=== PATIENT | male | born 1975 | race Caucasian/White ===

== ENCOUNTER 2024-06-13 00:42 | Outpatient (CLI) | payer OTHER, SELFPAY ==
--- NOTE | 2024-06-13 | DI.MRI_ITS ---
Exam(s) MR BRAIN WO EXAM: MR BRAIN WO CLINICAL HISTORY: Altered mental status, R41.82; increasing tremor; confusion, forgetfulness TECHNIQUE: Multiplanar multisequence MRI of the brain was performed. COMPARISON: CR SKULL 4V from 05/26/2024 FINDINGS: VENTRICLES AND EXTRA AXIAL SPACES: Normal in size and morphology for the patient's age. MIDLINE SHIFT: None. CEREBRAL PARENCHYMA: No focus of restricted diffusion to suggest acute infarct. No space-occupying le chacho identified. HEMORRHAGE: None. BRAINSTEM/CEREBELLUM: Normal. CALVARIUM: Normal. VISUALIZED PARANASAL SINUSES/MASTOIDS:There is a small mucous retention cyst or polyp in the right ma xillary sinus. The remaining visualized paranasal sinuses are clear. [place]: Normal flow void. PITUITARY GLAND: Unremarkable. OTHER FINDINGS: None. IMPRESSION: Unremarkable MRI of the brain. DATA REPOSITORY:
== END 2024-06-13 01:02 ==
PROVIDERS: Visit Provider Nurse Practitioner Family
DX: R41.82 Altered mental status, unspecified (principal)
CPT/HCPCS: 70551

== ENCOUNTER 2024-10-14 12:05 | Outpatient (CLI) | payer MEDICAID, SELFPAY ==
[2024-10-14 11:44] LABS: Abs Immature Grans 0.02 10^3/uL (0.0-0.06); Absolute Basophil Count 0.05 10^3/uL (0.0-0.2); Absolute Eosinophil Count 0.09 10^3/uL (0.0-0.7); Absolute Lymphocyte Count 1.37 10^3/uL (1.2-3.4); Absolute Monocyte Count 0.39 10^3/uL (0.1-0.8); Absolute Neutrophil Count 4.45 10^3/uL (1.2-6.7); Basophils % 0.8 %; Eosinophils % 1.4 %; HCT 40.2 % (40.0-50.0); HGB 12.7 g/dL (13.5-17.5); Immature Grans % 0.3 %; Lymphocytes % 21.5 %; MCH 27.5 pg (27.0-33.0); MCHC 31.6 % (32.0-36.0); MCV 87 fL (80-95); Monocytes % 6.1 %; Neutrophils % 69.9 %; Platelet Count 167 10^3/uL (130-400); RBC 4.61 10^6/uL (4.36-5.78); RDW 13.8 % (11.8-14.1); RDW-SD 44.1 fL; WBC 6.37 10^3/uL (4.4-10.8)
[2024-10-14 11:53] LABS: Hemoglobin A1C 5.6 % (<5.7)
[2024-10-14 13:09] LABS: ALT 25 U/L (16-63); AST 22 U/L (15-37); Albumin 3.5 g/dL (3.4-5.0); Alkaline Phosphatase 56 U/L (46-116); Anion Gap 4.2 mmol/L (3-11); BUN 22 mg/dL (7-18); Bilirubin, Total 0.47 mg/dL (0.2-1.0); CO2 29.8 mmol/L (21.0-32.0); CREATININE 1.1 mg/dL (0.70-1.30); Calcium 8.8 mg/dL (8.5-10.1); Calculated LDL 107 mg/dL (<100); Chloride 106 mmol/L (98-107); Cholesterol 178 mg/dL (<200); Estimated GFR 81.78 (mL/min/1.73m2); Glucose 147 mg/dL (74-106); HDL Cholesterol 56 mg/dL (40-60); Sodium 140 mmol/L (136-145); TSH (W/Ref FT4) 0.91 uIU/mL (0.36-3.74); Total Protein 7.2 g/dL (6.4-8.2); Triglyceride 77 mg/dL (<150); Vitamin B12 324 pg/mL (193-986); Vitamin D 25 Total 14.1 ng/mL (30-100)
== END 2024-10-14 12:06 | disposition home or self-care (01) ==
LOC: LBO 12:06
PROVIDERS: Visit Provider Nurse Practitioner Family
DX: Z00.00 Encounter for general adult medical examination without abnormal findings (principal); E55.9 Vitamin D deficiency, unspecified; D51.3 Other dietary vitamin B12 deficiency anemia; I10 Essential (primary) hypertension
CPT/HCPCS: 36415; 80053; 80061; 82306; 82607; 83036; 84443; 85025

== ENCOUNTER 2024-11-20 08:38 | Outpatient (CLI) | payer MEDICAID, SELFPAY ==
--- NOTE | 2024-11-20 08:30 | RT.EKG_ITS ---
APPROVED REPORT Exam: Resting ECG Reason for Exam: HIGH RISK MEDICATION USE Patient Location: O HR:58 bpm ECG Measurements Heart Rate 58 AXIS WV 164 P -3 QRSd 99 QRS 46 QT 468 T 58 QTc 460 Conclusion Sinus rhythm...normal P axis, V-rate 50- 99 Normal Electrocardiogram
== END 2024-11-20 08:39 | disposition home or self-care (01) ==
PROVIDERS: Visit Provider Family Medicine
DX: Z79.899 Other long term (current) drug therapy (principal)
CPT/HCPCS: 93005; 93010

== ENCOUNTER 2024-12-28 13:00 | Emergency (ER) | payer MEDICAID, SELFPAY ==
[2024-12-28 13:21] VITALS: BP 149/73; PULSE 73; RESP 18; TEMP 36.7; O2SAT 96
[2024-12-28 13:27] VITALS: BP 149/73; PULSE 73; RESP 18; TEMP 36.7; O2SAT 96
--- NOTE | 2024-12-28 14:02 | ED.GENADUL_ITS ---
Discharge Plan Disposition Patient Disposition: Home Condition: Stable Discharge Details Clinical Impression: Cellulitis Primary Care Provider: Unknown,Unknown ED Provider: Tanika Soliz Home Meds and New Rx's Prescriptions: New doxycycline hyclate 100 mg capsule 100 mg PO BID 10 Days Qty: 20 0RF No Action methadone 10 mg/5 mL solution 245 mg PO DAILY clonidine HCl 0.1 mg tablet 0.1 mg PO BID PRN (Reason: anxiety) Patient Comments: TAKE 1 TABLET BY MOUTH TWICE DAILY NEEDED FOR ANXIETY omeprazole 40 mg capsule,delayed release(DR/EC) 40 mg PO DAILY Patient Comments: TAKE 1 CAPSULE BY MOUTH EVERY DAY lamotrigine 25 mg tablet 25 mg PO DAILY propranolol 10 mg tablet 10 mg PO TID Patient Comments: TAKE 1 TABLET BY MOUTH THREE TIMES DAILY tamsulosin 0.4 mg capsule 0.4 mg PO DAILY Patient Comments: TAKE 1 CAPSULE BY MOUTH DAILY amlodipine 10 mg tablet 10 mg PO DAILY Patient Comments: TAKE 1 TABLET BY MOUTH EVERY DAY gabapentin 300 mg capsule 300 mg PO TID Patient Comments: TAKE 1 CAPSULE BY MOUTH THREE TIMES DAILY hydroxyzine HCl 25 mg tablet 25 mg PO BID Patient Comments: TAKE 1 TABLET BY MOUTH TWICE DAILY NEEDED FOR ANXIETY AND 2 TABLETS AT BEDTIME TO AID SLEEP lithium carbonate 300 mg tablet 300 mg PO BID Patient Comments: TAKE 1 TABLET BY MOUTH TWICE DAILY lamotrigine 100 mg tablet 100 mg PO DAILY Patient Comments: TAKE 1 TABLET BY MOUTH DAILY Discharge Instructions Instructions: Cellulitis (Skin Infection), Adult ED Additional Instructions: Please keep your wound clean and dry. Use non-stick dressing over the wound to prevent your skin avulsion. Observe for any worsening redness, swelling, fever, calf pain, etc. If this happens, please return to the Emergency Department. HPI General Date/Time Provider Initiated Documentation: 12/28/24 13:48 . HPI Narrative: The patient is a 49-year-old male with history of hypertension who comes the emergency department for concern for skin infection. The patient reports that he is prone to falling and so a week ago as he was going up the stairs he slipped and hit his shins against the step. Reports he developed a large red spot on his left murry and on the right murry he had significant bruising. He reports that there was a skin break to the left murry which he and his have been dressing and applying [id number] antibiotic. Reports that he had a dressing on it earlier this morning and when he removed the dressing it ripped up the scab that was over it. Reports that he is also concerned about rash on his knuckles. Reports that he relapsed and had injected cocaine in the knuckle spaces of his hands. Reports that he also has a scab formation on the back of his right calf also from injecting cocaine. Reports this is the first time he has had rashes from injection. Reports otherwise that he feels at baseline health. Denies any fever with this. Denies abdominal pain, nausea or vomiting. Denies any chest pain or shortness of breath. Related Data Home Medications ?Medication ?Instructions ?Recorded ?Confirmed amlodipine 10 mg tablet 10 mg PO DAILY 12/28/24 12/28/24 clonidine HCl 0.1 mg tablet 0.1 mg PO BID PRN anxiety 12/28/24 12/28/24 doxycycline hyclate 100 mg capsule 100 mg PO BID 10 days #20 caps 12/28/24 gabapentin 300 mg capsule 300 mg PO TID 12/28/24 12/28/24 hydroxyzine HCl 25 mg tablet 25 mg PO BID 12/28/24 12/28/24 lamotrigine 100 mg tablet 100 mg PO DAILY 12/28/24 12/28/24 lamotrigine 25 mg tablet 25 mg PO DAILY 12/28/24 12/28/24 lithium carbonate 300 mg tablet 300 mg PO BID 12/28/24 12/28/24 methadone 10 mg/5 mL oral solution 245 mg PO DAILY 12/28/24 12/28/24 omeprazole 40 mg capsule,delayed 40 mg PO DAILY 12/28/24 12/28/24 release propranolol 10 mg tablet 10 mg PO TID 12/28/24 12/28/24 tamsulosin 0.4 mg capsule 0.4 mg PO DAILY 12/28/24 12/28/24 Previous Rx's ?Medication ?Instructions ?Recorded doxycycline hyclate 100 mg capsule 100 mg PO BID 10 days #20 caps 12/28/24 Allergies Allergy/AdvReac Type Severity Reaction Status Date / Time No Known Allergies Allergy Unverified 12/28/24 13:24 General Stated Complaint: Cellulitis HANNAH: 3 Review of Systems Narrative: Review of systems are negative except as mentioned. Exam Const General: healthy appearing, comfortable and no acute distress Orientation: alert, awake and oriented x3 Resp Effort & Inspection: normal respiratory effort Auscultation: clear to auscultation bilaterally Cardio Rate: regular rate Rhythm: regular rhythm Pulses: radial pulses present Other: The patient has equal dorsalis pedis pulses. GI Palpation: soft Auscultation: normal bowel sounds Rectal Exam: No tenderness Skin Full body images: 2 1. There is a skin break and surrounding erythema with increased warmth to the touch. No palpable induration is noted. 2. Scab formation is noted here without surrounding erythema or increased warmth to touch. 3. Area of erythema with increased warmth to touch without palpable induration. 4. Area of erythema with increased warmth to touch without palpable induration. Extrem Other: The patient does have left lower extremity swelling along the erythematous site without calf tenderness on palpation. Course Vital Signs Vital signs: Vital Signs Temperature 36.7 C 12/28/24 13:21 Pulse 73 12/28/24 13:21 Respiratory Rate 18 12/28/24 13:21 Blood Pressure 149/73 H 12/28/24 13:21 Pulse Oximetry 96 12/28/24 13:21 Temperature 36.7 C 12/28/24 13:27 Pulse 73 12/28/24 13:27 Respiratory Rate 18 12/28/24 13:27 Blood Pressure 149/73 H 12/28/24 13:27 Pulse Oximetry 96 12/28/24 13:27 Medical Decision Making The patient arrives hemodynamically stable. His physical exam is concerning for cellulitis. In particular to the left murry I told the patient and his that it does not yet need incision and drainage. I encouraged them to continue conservative wound management at home but that he will get a dose of p.o. antibiotic now and a prescription sent to his preferred pharmacy for the next few days. I told him to observe for any worsening signs of infection and if this happens return to the emergency department immediately. The patient does have swelling to the left lower extremity without calf tenderness. I suspect that the swelling secondary to the infection versus DVT. I told the patient and his though that if the leg starts to become painful or if the swelling worsens then he may need to return for an ultrasound study looking for blood clots. In regards to the knuckles of both hands I told him to also do conservative wound management and strongly cautioned him from injecting cocaine in his skin once more. Quality:SDOH Health Related Social Needs: 2 No Data to Display PFSH All Active Problems (Updated 12/28/24 @ 14:03 by Tanika Soliz DO) Cellulitis (Acute) Social History Smoking/Tobacco Use Status: Current every day Tobacco Type: smokeless tobacco Smoking risk assessment performed?: Yes Alcohol Intake: never Drug use: Daily Substance use type: crack/cocaine Do you feel safe at home: Yes Do you feel safe in your relationship?: Yes
[2024-12-28] MEDS: Doxycycline Hyclate 100 MG CAP PO (14:06)
[2024-12-28 14:09] VITALS: BP 149/73; PULSE 73; RESP 18; TEMP 36.7; O2SAT 96
== END 2024-12-28 14:10 | disposition home or self-care (01) ==
LOC: ER 14:17
PROVIDERS: Emergency Provider Emergency Medicine
DX: L03.116 Cellulitis of left lower limb; F14.10 Cocaine abuse, uncomplicated; L53.9 Erythematous condition, unspecified; F17.290 Nicotine dependence, other tobacco product, uncomplicated
CPT/HCPCS: 99283

== ENCOUNTER 2025-01-08 01:06 | Outpatient (CLI) | payer OTHER, SELFPAY ==
--- NOTE | 2025-01-08 10:42 | DI.RAD_ITS ---
Exam(s) XR LUMBAR SPINE AP, LAT EXAM: XR LUMBAR SPINE AP, LAT CLINICAL HISTORY: LOW BACK PAIN, DISABILITY DETERMINATION, Z02.71. TECHNIQUE: 2D digital imaging was performed of the lumbar spine. Three images were obtained. AP, l ateral and L5-S1 spot views were obtained. COMPARISON: No exams were available for comparison FINDINGS: BONES: No fracture or destructive lesion. There are endplate osteophytes at several levels of the lum bar spine. No facet hypertrophy identified. DISKS: Intervertebral disc spaces are maintained. ALIGNMENT: Lumbar spinal alignment is within normal limits. No spondylolysis or spondylolisthesis. SOFT TISSUE: Atherosclerotic calcification is seen. IMPRESSION: Mild degenerative changes in the lumbar spine. DATA REPOSITORY: RADIATION DOSE DELIVERED:
--- NOTE | 2025-01-08 10:43 | DI.RAD_ITS ---
Exam(s) XR KNEE RT 3V AP,LAT,[place] EXAM: XR KNEE RT 3V AP,LAT,[place] CLINICAL HISTORY: RT KNEE PAIN, Z02.71, DISABILITY DETERMINATION. TECHNIQUE: 2D digital imaging was performed of the right knee. Three views obtained. AP, lateral an d PA tunnel views were obtained. COMPARISON: There are no priors for comparison. FINDINGS: BONES: No acute fracture is present. No bony destructive lesion is seen. JOINTS: The knee is normally aligned. No joint effusion is seen. SOFT TISSUE: Normal. IMPRESSION: Unremarkable radiographs of the right knee. DATA REPOSITORY: RADIATION DOSE DELIVERED:
== END 2025-01-08 01:26 ==
PROVIDERS: PCP Nurse Practitioner Family; Visit Provider Pediatrics Pediatric Rheumatology
DX: Z02.71 Encounter for disability determination (principal); M54.50 Low back pain, unspecified
CPT/HCPCS: 73562; 72100

== ENCOUNTER 2025-02-01 12:03 | Inpatient (IN) | payer MEDICAID, SELFPAY ==
[2025-02-01] VITALS (35 sets, daily range): BP systolic 119–174; BP diastolic 57–108; PULSE 59–81; RESP 11–30; TEMP 36.5–36.8; O2SAT 93–100
--- NOTE | 2025-02-01 12:30 | DI.RAD_ITS ---
Exam(s) XR TIB/FIB LT EXAM: XR TIB/FIB LT CLINICAL HISTORY: cellulitis. TECHNIQUE: 2D digital imaging was performed of the left tibia and fibula. Three images were obtained . AP and lateral views were obtained. COMPARISON: No exams were available for comparison FINDINGS: BONES: No acute fracture is present. No bony destructive lesion is seen. Visualized portion of knee a nd ankle joints are unremarkable. SOFT TISSUE: There is edema seen in the soft tissues of the lower extremity. There appears to be a s oft tissue defect at the anterior aspect of the lower leg on the lateral view which may represent an ulcer. Please correlate with the patient's physical exam. IMPRESSION: 1. No radiographic evidence to suggest acute osteomyelitis. 2. Edema in the lower extremity suggesting cellulitis. Question of a skin defect anteriorly in the l ower leg on the lateral view which may represent an ulcer. Please correlate with the patient's physi salas exam. DATA REPOSITORY: RADIATION DOSE DELIVERED:
[2025-02-01 13:03] LABS: Abs Immature Grans 0.02 10^3/uL (0.0-0.06); Absolute Basophil Count 0.05 10^3/uL (0.0-0.2); Absolute Monocyte Count 0.53 10^3/uL (0.1-0.8); Absolute Neutrophil Count 7.34 10^3/uL (1.2-6.7); Basophils % 0.5 %; Eosinophils % 1.1 %; HCT 39.5 % (40.0-50.0); HGB 12.5 g/dL (13.5-17.5); Immature Grans % 0.2 %; Lactate 0.8 mmol/L (<or=2.0); Lymphocytes % 14.8 %; MCH 27.1 pg (27.0-33.0); MCHC 31.6 % (32.0-36.0); MCV 86 fL (80-95); MPV 8.9 fL (8.0-11.0); Monocytes % 5.6 %; Neutrophils % 77.8 %; Platelet Count 239 10^3/uL (130-400); RBC 4.61 10^6/uL (4.36-5.78); RDW-SD 46.9 fL; WBC 9.44 10^3/uL (4.4-10.8)
[2025-02-01 13:06] LABS: ESR 51 mm/hr (0-15)
[2025-02-01 13:21] LABS: ALT 25 U/L (16-63); AST 29 U/L (15-37); Albumin 3.4 g/dL (3.4-5.0); Alkaline Phosphatase 55 U/L (46-116); Anion Gap 4.9 mmol/L (3-11); BUN 30 mg/dL (7-18); Bilirubin, Total 0.8 mg/dL (0.2-1.0); C-Reactive Protein 3.61 mg/dL (<or=0.5); CO2 30.1 mmol/L (21.0-32.0); CREATININE 1.1 mg/dL (0.70-1.30); Calcium 9.3 mg/dL (8.5-10.1); Chloride 103 mmol/L (98-107); Estimated GFR 81.78 (mL/min/1.73m2); Glucose 124 mg/dL (74-106); Potassium 4.1 mmol/L (3.5-5.1); Sodium 138 mmol/L (136-145); Total Protein 7.9 g/dL (6.4-8.2)
[2025-02-01] MEDS: VANCOMYCIN/WATER (PEG) 2 GM/400 ML BAG IVPB (13:30)
--- NOTE | 2025-02-01 14:10 | W.ED.GENAD ---
Discharge Plan Disposition Patient Disposition: Admit to [facility] Condition: Stable Discharge Details Clinical Impression: Cellulitis, Cocaine abuse, Methadone dependence Primary Care Provider: Enid Arshad ED Provider: Shey Clarke Home Meds and New Rx's Prescriptions: Continued methadone 10 mg/5 mL solution 245 mg PO DAILY clonidine HCl 0.1 mg tablet 0.1 mg PO BID PRN (Reason: anxiety) Patient Comments: TAKE 1 TABLET BY MOUTH TWICE DAILY NEEDED FOR ANXIETY omeprazole 40 mg capsule,delayed release(DR/EC) 40 mg PO DAILY Patient Comments: TAKE 1 CAPSULE BY MOUTH EVERY DAY lamotrigine 25 mg tablet 25 mg PO DAILY propranolol 10 mg tablet 10 mg PO TID Patient Comments: TAKE 1 TABLET BY MOUTH THREE TIMES DAILY tamsulosin 0.4 mg capsule 0.4 mg PO DAILY Patient Comments: TAKE 1 CAPSULE BY MOUTH DAILY amlodipine 10 mg tablet 10 mg PO DAILY Patient Comments: TAKE 1 TABLET BY MOUTH EVERY DAY gabapentin 300 mg capsule 300 mg PO TID Patient Comments: TAKE 1 CAPSULE BY MOUTH THREE TIMES DAILY hydroxyzine HCl 25 mg tablet 25 mg PO BID Patient Comments: TAKE 1 TABLET BY MOUTH TWICE DAILY NEEDED FOR ANXIETY AND 2 TABLETS AT BEDTIME TO AID SLEEP lithium carbonate 300 mg tablet 300 mg PO BID Patient Comments: TAKE 1 TABLET BY MOUTH TWICE DAILY lamotrigine 100 mg tablet 100 mg PO DAILY Patient Comments: TAKE 1 TABLET BY MOUTH DAILY HPI General Date/Time Provider Initiated Documentation: 02/01/25 12:04. HPI Narrative: 49-year-old male with crack cocaine use and recurrent cellulitis, presenting with lab studies and dental follow-up. History of recurrent cellulitis in the left lower extremity. Previously on doxycycline following a fall in December 2024. A week ago, he fell again, injuring the same side, developing worsening redness in the left lower extremity. Reports purulent drainage from the wound, no additional antibiotics. Admits chills, denies fever. Continues to inject crack cocaine but not into the left leg for 3 months. Takes methadone daily. History of hypertension and mood disorder. Related Data Home Medications ?Medication ?Instructions ?Recorded ?Confirmed amlodipine 10 mg tablet 10 mg PO DAILY 12/28/24 02/01/25 clonidine HCl 0.1 mg tablet 0.1 mg PO BID PRN anxiety 12/28/24 02/01/25 gabapentin 300 mg capsule 300 mg PO TID 12/28/24 02/01/25 hydroxyzine HCl 25 mg tablet 25 mg PO BID 12/28/24 02/01/25 lamotrigine 100 mg tablet 100 mg PO DAILY 12/28/24 02/01/25 lamotrigine 25 mg tablet 25 mg PO DAILY 12/28/24 02/01/25 lithium carbonate 300 mg tablet 300 mg PO BID 12/28/24 02/01/25 methadone 10 mg/5 mL oral solution 245 mg PO DAILY 12/28/24 02/01/25 omeprazole 40 mg capsule,delayed 40 mg PO DAILY 12/28/24 02/01/25 release propranolol 10 mg tablet 10 mg PO TID 12/28/24 02/01/25 tamsulosin 0.4 mg capsule 0.4 mg PO DAILY 12/28/24 02/01/25 Allergies Allergy/AdvReac Type Severity Reaction Status Date / Time No Known Allergies Allergy Unverified 02/01/25 12:15 General Stated Complaint: Cellulitis HANNAH: 3 Exam Narrative Exam Narrative: General Appearance: Alert and oriented, not in acute distress. Vital signs: Within normal limits. HEENT: Within normal limits. Respiratory: Within normal limits. Gastrointestinal: No abdominal tenderness. Lymphatic: No lymphangitis. Extremities: Circumferential cellulitis with ulceration on the left lower leg. Multiple pustules present, neurovascularly intact. Erythema and swelling noted. Skin: No crepitus. Neurological: Normal. Course Vital Signs Vital signs: Vital Signs Pulse 81 02/01/25 12:11 Respiratory Rate 30 H 02/01/25 12:11 Pulse Oximetry 95 02/01/25 12:11 Temperature 36.8 C 02/01/25 12:23 Temperature Source Oral 02/01/25 12:23 Pulse 78 02/01/25 12:23 Pulse 74 02/01/25 12:20 Respiratory Rate 16 02/01/25 12:23 Blood Pressure 152/69 H 02/01/25 12:17 Blood Pressure Mean 95 02/01/25 12:17 Blood Pressure Position Sitting 02/01/25 12:16 Pulse Oximetry 97 02/01/25 12:23 Oxygen Delivery Method Room Air 02/01/25 12:23 Oxygen Flow Rate 0 02/01/25 12:16 Pain Level 7 02/01/25 12:23 Lab/Test Results Lab/Test Results: 02/01/25 12:30 Leg - Left Lower Wound Culture - Pending 02/01/25 12:30 Leg - Left Lower Gram Stain - Final 02/01/25 12:50 Blood Blood Culture - Pending 02/01/25 12:50 Blood Blood Culture - Pending Laboratory Tests Range/Units 02/01/25 12:50 WBC (4.4-10.8) 10^3/uL 9.44 RBC (4.36-5.78) 10^6/uL 4.61 Hgb (13.5-17.5) g/dL 12.5 L Hct (40.0-50.0) % 39.5 L MCV (80-95) fL 86 MCH (27.0-33.0) pg 27.1 MCHC (32.0-36.0) % 31.6 L RDW (11.8-14.1) % 15.0 H Plt Count (130-400) 10^3/uL 239 MPV (8.0-11.0) fL 8.9 Immature Gran % % 0.2 Neutrophils % % 77.8 Lymphocytes % % 14.8 Monocytes % % 5.6 Eosinophils % % 1.1 Basophils % % 0.5 Nucleated RBC % (0.0-0.3) % 0.0 Absolute Neutrophils (1.2-6.7) 10^3/uL 7.34 H Absolute Lymphocytes (1.2-3.4) 10^3/uL 1.40 Absolute Monocytes (0.1-0.8) 10^3/uL 0.53 Absolute Eosinophils (0.0-0.7) 10^3/uL 0.10 Absolute Basophils (0.0-0.2) 10^3/uL 0.05 ESR (0-15) mm/hr 51 H VBG Lactate (<or=2.0) mmol/L 0.8 Sodium (136-145) mmol/L 138 Potassium (3.5-5.1) mmol/L 4.1 Chloride (98-107) mmol/L 103 Carbon Dioxide (21.0-32.0) mmol/L 30.1 Anion Gap (3-11) mmol/L 4.9 BUN (7-18) mg/dL 30 H Creatinine (0.70-1.30) mg/dL 1.1 Est GFR (CKD-EPI 2020) (mL/min/1.73m2) 81.78 Glucose (74-106) mg/dL 124 H Calcium (8.5-10.1) mg/dL 9.3 Total Bilirubin (0.2-1.0) mg/dL 0.8 AST (15-37) U/L 29 ALT (16-63) U/L 25 Alkaline Phosphatase (46-116) U/L 55 C-Reactive Protein (<or=0.5) mg/dL 3.61 H Total Protein (6.4-8.2) g/dL 7.9 Albumin (3.4-5.0) g/dL 3.4 Medical Decision Making Laboratory Studies CBC: no leukocytosis, mild anemia. Elevated BUN, likely mild dehydration. CRP elevated at 3.61. Imaging X-ray: no evidence of gas and tissue. Initial Assessment: 49-year-old male with history of crack cocaine use and recurrent cellulitis presents with worsening redness and purulent drainage to left lower extremity after a fall a week ago. Denies fever, endorses chills. History of hypertension, mood disorder, and methadone use. ED Course: - Circumferential cellulitis with ulceration on left lower leg, multiple pustules, neurovascularly intact. - Erythema and swelling noted, no abdominal tenderness, no obvious lymphangitis, no crepitus appreciated. - CBC reassuring, no leukocytosis, mild anemia. - BUN elevated, likely mild dehydration. - CRP elevated at 3.61. - X-ray does not show evidence of obvious gas and tissue. - IV antibiotics initiated, vancomycin started. - Case discussed with Dr. Keith, hospitalist, who will admit patient to service. Final Assessment: Extensive cellulitis requiring IV antibiotics, vancomycin initiated. No evidence of sepsis. Admission required for further management. Clinical Impression: - Cellulitis of the left lower extremity. - Crack cocaine use. - Hypertension. Disposition: - Admission: Patient to be admitted to hospitalist service. - Follow-Up: Methadone dosing to be confirmed with [facility] clinic. MDM Components Evaluation: - Number of Differential Diagnoses or Management Options: Cellulitis, crack cocaine use, hypertension. - Amount and Complexity of Data Reviewed: CBC, BUN, CRP, X-ray. - Risk of Complication and Morbidity or Mortality: Extensive cellulitis with risk of worsening infection, mild dehydration, ongoing substance use. Quality:[facility] Health Related Social Needs: Health related social needs inadequate housing (Z59.1), transportation insecurity (Z59.82) [facility] All Active Problems (Updated 02/01/25 @ 14:13 by RADHA Rodríguez) Methadone dependence (Acute) Cocaine abuse (Acute) Cellulitis (Acute) Social History Smoking/Tobacco Use Status: Current every day Tobacco Type: cigarettes and smokeless tobacco Smoking risk assessment performed?: Yes Alcohol Intake: never Drug use: Daily Substance use type: crack/cocaine Details: last use yesterday Do you feel safe at home: Yes Do you feel safe in your relationship?: Yes
[2025-02-01 14:11] LABS: Lithium < 0.2 mmol/L (0.6-1.2)
--- NOTE | 2025-02-01 15:48 | W.PC.ACHO ---
Registration Status: Primary Language: Preferred Language: ED Information & Data Chief Complaint Cellulitis 02/01/25 14:12 Triage Note pt with recent cellulitis to 02/01/25 12:16 left murry, was healing well then fell again and broke it open a few days ago, pain returned, increase in swelling/redness/drainage, pain increasing, no fever but feels hot/cold, transportation instability, on Methadone and mult psych meds, last injected Cocaine yesterday, nervous/anxious, HTN. Most Recent Vital Signs Temperature 36.8 C 02/01/25 12:23 Temperature Source Oral 02/01/25 12:23 Pulse 60 02/01/25 15:40 Pulse 61 02/01/25 15:40 Respiratory Rate 15 02/01/25 15:40 Blood Pressure 132/66 02/01/25 15:31 Blood Pressure Mean 86 02/01/25 15:31 Blood Pressure Position Sitting 02/01/25 12:16 Pulse Oximetry 94 02/01/25 15:40 Oxygen Delivery Method Room Air 02/01/25 12:23 Oxygen Flow Rate 0 02/01/25 12:16 Pain Level 7 02/01/25 12:23 Allergies No Known Allergies Allergy (Unverified 02/01/25 12:15) Precautions Isolation Standard precaution 02/01/25 12:18 IV IV Catheter Type [Left Forearm Peripheral IV ] IV Catheter Gauge [Left 18 Forearm] Diet Orders Category Date Time Status Regular/Normal [DIET] Nutrition 02/01/25 Dinner Active Diagnostics 02/01/25 02/01/25 Range/Units 13:35 12:50 WBC 9.44 (4.4-10.8) 10^3/uL RBC 4.61 (4.36-5.78) 10^6/uL Hgb 12.5 L (13.5-17.5) g/dL Hct 39.5 L (40.0-50.0) % MCV 86 (80-95) fL MCH 27.1 (27.0-33.0) pg MCHC 31.6 L (32.0-36.0) % RDW 15.0 H (11.8-14.1) % Plt Count 239 (130-400) 10^3/uL MPV 8.9 (8.0-11.0) fL Immature Gran % 0.2 % Neutrophils % 77.8 % Lymphocytes % 14.8 % Monocytes % 5.6 % Eosinophils % 1.1 % Basophils % 0.5 % Nucleated RBC % 0.0 (0.0-0.3) % Absolute Neutrophils 7.34 H (1.2-6.7) 10^3/uL Absolute Lymphocytes 1.40 (1.2-3.4) 10^3/uL Absolute Monocytes 0.53 (0.1-0.8) 10^3/uL Absolute Eosinophils 0.10 (0.0-0.7) 10^3/uL Absolute Basophils 0.05 (0.0-0.2) 10^3/uL ESR 51 H (0-15) mm/hr VBG Lactate 0.8 (<or=2.0) mmol/L Sodium 138 (136-145) mmol/L Potassium 4.1 (3.5-5.1) mmol/L Chloride 103 (98-107) mmol/L Carbon Dioxide 30.1 (21.0-32.0) mmol/L Anion Gap 4.9 (3-11) mmol/L BUN 30 H (7-18) mg/dL Creatinine 1.1 (0.70-1.30) mg/dL Est GFR (CKD-EPI 2020) 81.78 (mL/min/1.73m2) Glucose 124 H (74-106) mg/dL Calcium 9.3 (8.5-10.1) mg/dL Total Bilirubin 0.8 (0.2-1.0) mg/dL AST 29 (15-37) U/L ALT 25 (16-63) U/L Alkaline Phosphatase 55 (46-116) U/L C-Reactive Protein 3.61 H (<or=0.5) mg/dL Total Protein 7.9 (6.4-8.2) g/dL Albumin 3.4 (3.4-5.0) g/dL [place] < 0.2 L (0.6-1.2) mmol/L 02/01/25 12:30 Wound Culture - Pending Leg - Left Lower Gram Stain - Final 02/01/25 12:50 Blood Culture - Pending Blood 02/01/25 12:50 Blood Culture - Pending Blood Intake and Output - 24 Hour Total 02/01/25 12:03 thru 02/01/25 12:16 Weight 108.862 kg Falls Risk Assessment History of Falls Previous History 02/01/25 12:24 Contributing Factors Impairments,Medications 02/01/25 12:24 Ambulatory Aids Independent 02/01/25 12:24 Tubes/Lines None 02/01/25 12:24 Gait Evaluation W/no contributing factors 02/01/25 12:24 Cognition No cognitive impairment 02/01/25 12:24 Fall Total Score 31 02/01/25 12:24 Level of Risk Moderate Risk 02/01/25 12:24 v v v v v v v v v Sending and/or Receiving Nurses: Please use comment section below to note any information pertinent to the patient hand-off not included above. Information / Comments: Report received from:Nidhi Navarro, M[employer]. All questions answered.
--- NOTE | 2025-02-01 16:26 | W.PM.HP.N ---
Date of service: 02/01/25 Time of Service: 16:26 Assessment and Plan Assessment and plan (1) Cellulitis: Status: Acute Assessment and plan: Severe cellulitis, in patient with recent IVDU, though he describes traumatic injury with wound as source of this infection. I agree with vancomycin given purulence and IVDU No signs endocarditis or other systemic infection, but consider additional evaluation if staph in his blood. blood culture and culture from purulent blister is pending. No evidence of osteo or gas forming infection on XR or exam (2) Opioid use disorder, severe, on maintenance therapy: Status: Acute Assessment and plan: He is stable in remission from opioids on high dose methadone, continue. Has recent EKG in 10/21, no med change since then. (3) Cocaine abuse: Status: Acute Assessment and plan: Intermittent abuse of crushed adderral and cocaine, including IV. Address with addiction/primary team as outpatient (4) Hypertension: Assessment and plan: continue outpatient therapy (5) Bipolar disorder: Assessment and plan: Describes stable mood, though lithium not detectable. bringing in his current medications to confirm (6) Lower urinary tract symptoms: Assessment and plan: continue tamsulosin (7) Anemia, mild: Status: Acute Assessment and plan: This was present 10/21. He has some ongoing blood in stool that is a/w hard stool/constipation complicating opioid use. Schedule PEG and follow. (8) Foot drop, left: Assessment and plan: this is chronic, and he does have a h/o sciatica type pain. Hard to examine well with acute infection but follow as outpatient as he recovers. He could possibly need AFO if his foot drags, and may need further diagnostic evaluation such as EMG and/or LS spinal MRI (9) DVT prophylaxis: Status: Acute Assessment and plan: enoxaparin History of Present Illness History of Present Illness Chief Complaint: leg pain Narrative: 49 yo M with history of regular IV stimulant use, opioid use disorder on methadone, and hypertension presents with 6 weeks of a wound on his left murry that has greatly worsened in the past week. The wound first opened up when he fell on the staired and sustained a 2-3 cm wound to his left murry. this wound grew and became red, and he was treated with a week of antibiotics. It was not nearly as bad as it is now. The redness improved but the wound never stopped seeping pus when he touched it. He was cleaning it daily with peroxide and let it dry. About a week ago the redness started to spread again. Bumps appeared and opened with pus further down the leg and a red rash with bad swelling started to spread and worsen. For the past 3-4 days, he has had itching all over his body. No other red rash but he has scratched himself several places like on arms and back. He didn't come sooner as he doesn't drive. Last night he started having chills and finally came in. He is using cocaine, usually smoking, most days. He injected adderall last 2 days ago. No alcohol or opioid use. No injection in the area of the current infection. Review of Systems All systems reviewed & are unremarkable except as noted in HPI and below Cardiovascular Cardiovascular: Denies chest pain at rest, Denies chest pain with activity, Denies syncope, Denies edema, Denies lightheadedness and Denies dyspnea Respiratory Respiratory: Denies dyspnea Gastrointestinal Gastrointestinal: Denies melena, Reports hematochezia (chronic a/w hard stools) and Reports constipation (chronic, did have a loose stool yesterday) Genitourinary Genitourinary: Denies hematuria and Reports urinary hesitancy (on tamsulosin) Neurologic Neurologic: Denies behavioral changes, Denies confusion, Denies syncope and Reports localized weakness (chronically weak left foot, drags it a lot.) Psychiatric Psychiatric: Denies behavioral changes, Denies confusion and Denies mood swings PFSH All Active Problems (Updated 02/01/25 @ 16:50 by Teofilo Beavers) Anemia, mild (Acute) DVT prophylaxis (Acute) Opioid use disorder, severe, on maintenance therapy (Acute) Methadone dependence (Acute) Cocaine abuse (Acute) Cellulitis (Acute) Medical History (Updated 02/01/25 @ 16:50 by Teofilo Beavers) Foot drop, left Bipolar disorder Lower urinary tract symptoms Hypertension Family History (Updated 02/01/25 @ 17:29 by Teofilo Beavers) Father Alcohol use disorder Substance use disorder Brother , 2 brothers of overdose Substance use disorder Social History (Updated 02/01/25 @ 17:30 by Teofilo Beavers) Smoking/Tobacco Use Status: Former Tobacco Use Tobacco: How many years used: 20 Smoking risk assessment performed?: Yes Alcohol Intake: never Drug use: Daily Substance use type: crack/cocaine Details: last use yesterday Housing: house Do you feel safe at home: Yes Do you feel safe in your relationship?: Yes Additional Social history: Lives with in [place]. Kids/granddaughters on same property Meds Allergies and Home Medications Allergies Allergy/AdvReac Type Severity Reaction Status Date / Time No Known Allergies Allergy Unverified 02/01/25 12:15 Home Medications ?Medication ?Instructions ?Recorded ?Confirmed ?Type amlodipine 10 mg tablet 10 mg PO DAILY 12/28/24 02/01/25 History clonidine HCl 0.1 mg tablet 0.1 mg PO BID PRN anxiety 12/28/24 02/01/25 History gabapentin 300 mg capsule 300 mg PO TID 12/28/24 02/01/25 History hydroxyzine HCl 25 mg tablet 25 mg PO BID 12/28/24 02/01/25 History lamotrigine 100 mg tablet 100 mg PO DAILY 12/28/24 02/01/25 History lamotrigine 25 mg tablet 25 mg PO DAILY 12/28/24 02/01/25 History lithium carbonate 300 mg tablet 300 mg PO BID 12/28/24 02/01/25 History methadone 10 mg/5 mL oral solution 245 mg PO DAILY 12/28/24 02/01/25 History omeprazole 40 mg capsule,delayed 40 mg PO DAILY 12/28/24 02/01/25 History release propranolol 10 mg tablet 10 mg PO TID 12/28/24 02/01/25 History tamsulosin 0.4 mg capsule 0.4 mg PO DAILY 12/28/24 02/01/25 History Exam Narrative Exam Narrative: GEN: Alert and oriented x 4, pleasant and cooperative, gives linear history. No acute distress at rest. HEENT: Head atraumatic. Conjunctiva clear, no icterus. PEERL, EOMI. no rhinorrhea. MMM, OP benign. Neck is supple with no masses or lymphadenopathy, trachea midline LUNGS: CTAB with normal effort CV: RRR with no murmurs, gallops, or rubs. 2+ PD pulses ABD: active bowel sounds, soft, nontender and nondistended. No masses. EXT: no cyanosis, clubbing, or edema x focally on left MSK: No joint redness or swelling NEURO: CN 2-12 grossly intact. Normal movement of 4 extremities, but 4/5 strength dorsiflexion left foot, more pronounced in 1st toe. Sensation intact to light touch. Normal speech and coordination. No tremor SKIN: Well demarkated red patch with ~8cm dry scab on superior murry, scattered pustules and smaller excoriated papules with scabs, superior murry to ankle circumferentially. On upper arms and back also scattered pink papules, excoriations, dry without pus or redness. PSYCH: mildy anxious mood and affect, normal thought process. Results Imaging Imaging Studies: XR left tib/fib: . No radiographic evidence to suggest acute osteomyelitis. 2. Edema in the lower extremity suggesting cellulitis. Question of a skin defect anteriorly in the lower leg on the lateral view which may represent an ulcer. Please correlate with the patient's physical exam. Labs 02/01/25 12:50 02/01/25 12:50 Labs: Laboratory Results - last 24 hr 02/01/25 02/01/25 12:50 13:35 WBC 9.44 RBC 4.61 Hgb 12.5 L Hct 39.5 L MCV 86 MCH 27.1 MCHC 31.6 L RDW 15.0 H Plt Count 239 MPV 8.9 Immature Gran % 0.2 Neutrophils % 77.8 Lymphocytes % 14.8 Monocytes % 5.6 Eosinophils % 1.1 Basophils % 0.5 Nucleated RBC % 0.0 Absolute Neutrophils 7.34 H Absolute Lymphocytes 1.40 Absolute Monocytes 0.53 Absolute Eosinophils 0.10 Absolute Basophils 0.05 ESR 51 H VBG Lactate 0.8 Sodium 138 Potassium 4.1 Chloride 103 Carbon Dioxide 30.1 Anion Gap 4.9 BUN 30 H Creatinine 1.1 Est GFR (CKD-EPI 2020) 81.78 Glucose 124 H Calcium 9.3 Total Bilirubin 0.8 AST 29 ALT 25 Alkaline Phosphatase 55 C-Reactive Protein 3.61 H Total Protein 7.9 Albumin 3.4 Rosine < 0.2 L Last Vital Signs Temp 36.5 C 02/01/25 16:17 Pulse 60 02/01/25 16:17 Resp 17 02/01/25 16:17 BP 143/79 H 02/01/25 16:17 Pulse Ox 100 02/01/25 16:17 Time Spent Time spent with Patient: 55-74 minutes Time was spent: preparing to see the patient(eg.review tests), obtaining and/or reviewing separately otained hiistory, ordering medications,tests, procedures, referring, communicating with other health insurance healthcare representative, indepentently interpreting results, counseling the patient and care coordination
[2025-02-01] MEDS: diphenhydrAMINE 25 MG CAP PO (19:02)
[2025-02-01] MEDS: Lithium Carbonate 150 MG CAP 300 MG PO (20:16)
[2025-02-01] MEDS: Enoxaparin 40 MG/0.4 ML SYR SC (20:16)
[2025-02-01] MEDS: Propranolol 10 MG TAB PO (20:16)
[2025-02-01] MEDS: Gabapentin 300 MG CAP PO (20:16)
[2025-02-01] MEDS: Normal Saline Flush 10 ML SYR IVP (20:17)
[2025-02-02] MEDS: VANCOMYCIN 1,250 MG in Normal Saline 250 ML 166.6666 MG IVPB (01:23)
[2025-02-02] MEDS: Water,Injection,Sterile 10 ML VIAL (01:37)
[2025-02-02 04:53] VITALS: BP 142/64; PULSE 67; RESP 16; TEMP 37.2; O2SAT 95
[2025-02-02 06:49] LABS: Anion Gap 5.6 mmol/L (3-11); BUN 22 mg/dL (7-18); CO2 28.4 mmol/L (21.0-32.0); CREATININE 0.8 mg/dL (0.70-1.30); Calcium 8.8 mg/dL (8.5-10.1); Chloride 108 mmol/L (98-107); Estimated GFR 107.82 (mL/min/1.73m2); Glucose 116 mg/dL (74-106); Potassium 4.7 mmol/L (3.5-5.1); Sodium 142 mmol/L (136-145)
[2025-02-02 06:55] LABS: Vancomycin, Random 17.1 ug/mL
[2025-02-02] MEDS: Normal Saline Flush 10 ML SYR IVP (08:06)
[2025-02-02] MEDS: Methadone Liquid 10 MG/ML 125 MG PO (08:07)
[2025-02-02] MEDS: diphenhydrAMINE 25 MG CAP PO ×4 (08:07→20:08)
[2025-02-02] MEDS: lamoTRIgine 25 MG TAB PO (08:07)
[2025-02-02] MEDS: Gabapentin 300 MG CAP PO ×3 (08:07→20:07)
[2025-02-02] MEDS: Propranolol 10 MG TAB PO ×3 (08:08→20:08)
[2025-02-02] MEDS: amLODIPine 10 MG TAB PO (08:08)
[2025-02-02] MEDS: lamoTRIgine 100 MG TAB PO (08:08)
[2025-02-02] MEDS: Tamsulosin 0.4 MG CAPCR PO (08:08)
[2025-02-02] MEDS: Lithium Carbonate 150 MG CAP 300 MG PO ×2 (08:08→20:11)
[2025-02-02] MEDS: Pantoprazole 40 MG TABCR PO (08:08)
[2025-02-02 08:30] VITALS: BP 116/67; PULSE 63; RESP 16; TEMP 36.6; O2SAT 97
[2025-02-02] MEDS: diphenhydrAMINE /ZINC ACET CR 30 GM TUBE TP ×3 (11:02→22:14)
[2025-02-02] MEDS: VANCOMYCIN/WATER (PEG) 1.5 GM/300 ML BAG IVPB (11:20)
[2025-02-02] MEDS: Polyethylene Glycol 3350 17 GM PACKET PO (11:20)
--- NOTE | 2025-02-02 11:43 | PGE_ITS ---
Date of Service Date of service: 02/02/25 Time of Service: 11:43 Assessment and Plan Assessment and plan (1) Cellulitis: Status: Acute Assessment and plan: Severe cellulitis, in patient with recent IVDU, though he describes traumatic injury with wound as source of this infection. Treated with vancomycin given purulence and IVDU, but culture of blister growing GAS. I think this is the pathogen as was from closed blister. No signs endocarditis or other systemic infection, but consider additional evaluation if staph in his blood. blood culture still pending. No evidence of osteo or gas forming infection on XR or exam Clearly imrpoving today on vancomycin. Will narrow to focus on strep, oxacillin for now (though could consider PCN if nothing else grows on cultures and GAS confirmed). (2) Opioid use disorder, severe, on maintenance therapy: Status: Acute Assessment and plan: He is stable in remission from opioids on high dose methadone, continue. Has recent EKG in 10/21, no med change since then. (3) Hypertension: Assessment and plan: continue outpatient therapy, has been slighty high. (4) Bipolar disorder: Assessment and plan: Describes stable mood, though lithium not detectable. Still need to confirm meds with . (5) Lower urinary tract symptoms: Assessment and plan: continue tamsulosin, urinating fine (6) Anemia, mild: Status: Acute Assessment and plan: This was present 10/21. He has some ongoing blood in stool that is a/w hard stool/constipation complicating opioid use. Schedule PEG and follow with CBC 02/03. Will need outpatient f/u. (7) DVT prophylaxis: Status: Acute Assessment and plan: enoxaparin Subjective Subjective Patient reports: feels better, tolerating a regular diet and voiding w/o difficulty; denies diarrhea, nausea, vomiting, shortness of breath or fever Interval history since last seen: Leg feels better today. skin is still itchy, benadryl helps. Chills overnight but no fever. Exam Narrative Exam Narrative: GEN: Alert and oriented, No acute distress at rest, sitting up in chair LUNGS: CTAB with normal effort CV: RRR with no murmurs, gallops, or rubs. 2+ PD pulses ABD: active bowel sounds, soft, nontender and nondistended. No masses. EXT: no cyanosis, clubbing, or edema x focally on left SKIN: Well demarkated patch with ~8cm dry scab on superior murry, more pink than red today, scattered pustules and smaller excoriated papules with scabs, superior murry to ankle circumferentially. On upper arms and back also scattered papules andexcoriations, dry without pus or redness. PSYCH: mildy anxious mood and affect, normal thought process. Objective Last Vital Signs Temp 37.2 C 02/02/25 04:53 Pulse 67 02/02/25 04:53 Resp 16 02/02/25 04:53 BP 142/64 H 02/02/25 04:53 Pulse Ox 95 02/02/25 04:53 Laboratory Results - last 24 hr 02/01/25 02/01/25 02/02/25 12:50 13:35 06:15 WBC 9.44 RBC 4.61 Hgb 12.5 L Hct 39.5 L MCV 86 MCH 27.1 MCHC 31.6 L RDW 15.0 H Plt Count 239 MPV 8.9 Immature Gran % 0.2 Neutrophils % 77.8 Lymphocytes % 14.8 Monocytes % 5.6 Eosinophils % 1.1 Basophils % 0.5 Nucleated RBC % 0.0 Absolute Neutrophils 7.34 H Absolute Lymphocytes 1.40 Absolute Monocytes 0.53 Absolute Eosinophils 0.10 Absolute Basophils 0.05 ESR 51 H VBG Lactate 0.8 Sodium 138 142 Potassium 4.1 4.7 Chloride 103 108 H Carbon Dioxide 30.1 28.4 Anion Gap 4.9 5.6 BUN 30 H 22 H Creatinine 1.1 0.8 Est GFR (CKD-EPI 2020) 81.78 107.82 Glucose 124 H 116 H Calcium 9.3 8.8 Total Bilirubin 0.8 AST 29 ALT 25 Alkaline Phosphatase 55 C-Reactive Protein 3.61 H Total Protein 7.9 Albumin 3.4 Random Vancomycin 17.1 [place] < 0.2 L Time Spent with Patient Time Spent with Patient: 35-49 minutes Time was spent: preparing to see the patient(eg.review tests), obtaining and/or reviewing separately otained hiistory, ordering medications,tests, procedures, referring, communicating with other health care analyst, indepentently interpreting results, counseling the patient and care coordination
--- NOTE | 2025-02-02 11:50 | PHA.REVIEW2 ---
Pharmacy Admission Review Admission Clinical Review Admission Pharmacy Review: Anemia, mild (Acute) DVT prophylaxis (Acute) Opioid use disorder, severe, on maintenance therapy (Acute) Cocaine abuse (Acute) Cellulitis (Acute) No Known Allergies Allergy (Unverified 02/01/25 12:15) Resuscitation Status Full Code Height 5 ft 8 in Weight 103.9 kg Pharmacy Admission Review Renal Dosing Renal Dosing: BUN 22 mg/dL (7-18) H 02/02/25 06:15 Creatinine 0.8 mg/dL (0.70-1.30) 02/02/25 06:15 Medications needing adjustments: Reviewed (CrCl 129 mL/min, BUN decreased from 30) List of meds needing interventions: Current medications are okay Anticoagulation Anticoagulation: Hgb 12.5 g/dL (13.5-17.5) L 02/01/25 12:50 Hct 39.5 % (40.0-50.0) L 02/01/25 12:50 Plt Count 239 10^3/uL (130-400) 02/01/25 12:50 Creatinine 0.8 mg/dL (0.70-1.30) 02/02/25 06:15 DVT Prophylaxis: Reviewed Medications: Enoxaparin (40mg daily) Opiate Usage Evaluate Pain Scale/Pains Meds: Reviewed (methadone 125mg qAM and 120mg qPM - verified with [facility]) Scheduled Bowel Reg ordered if on Opiates?: No (PRN Miralax) Relevant Labs Relevant Labs: ESR 51 mm/hr (0-15) H 02/01/25 12:50 Sodium 142 mmol/L (136-145) 02/02/25 06:15 Potassium 4.7 mmol/L (3.5-5.1) 02/02/25 06:15 Chloride 108 mmol/L (98-107) H 02/02/25 06:15 C-Reactive Protein 3.61 mg/dL (<or=0.5) H 02/01/25 12:50 Electrolytes, C-Reactive P, ESR: Reviewed Cardiac Review BP, HR, EF%: Reviewed (BP 142/64, HR 67) List meds needing interventions: has order for amlodipine 10mg daily and propranolol 10mg TID QTc Review QTc: Reviewed (460 from 11/20/24 - most recent EKG on file) IV to PO Switch IV Medications: Reviewed (vancomycin) Home Meds Home Med List reviewed: Reviewed Relevent Home Meds Not ordered & why?: hydroxyzine (was ordered and then canceled by provider) and omeprazole (has order for pantoprazole) Current Meds Current Medication Order Review: Intervened Comments: Added IV access order Pharmacy Antibiotic Review Relevant Labs: Relevant Labs 02/01/25 12:50 C-Reactive Protein 3.61 H WBC 9.44 10^3/uL (4.4-10.8) 02/01/25 12:50 Temperature 37.2 C Microbiology 02/01/25 12:30 Wound Culture - Preliminary Leg - Left Lower Strep pyogenes (Group A) Gram Stain - Final Pharmacy Antibiotic Activity: C/S review and Reviewed, no change Comments: Patient is on vancomycin, day 1, for severe cellulitis. Vancomycin level this morning was 17.1. Increased dose to 1500mg q12h with predicted AUC of 557 and trough of 17.3. Repeat level ordered for tomorrow morning with labs due to change in dose. Will adjust as needed based on level. Blood cultures are pending.
--- NOTE | 2025-02-02 12:47 | INITIAL_ITS ---
Date of service: 02/02/25 Time of Service: 12:47 Care Management Initial Assmt Initial Assessment Reason for Hospitalization: recurrent/severe cellulitis of the left lower extremity Functional Status/Living Situation Patient Presentation: Nii presented to the ED yesterday afternoon with c/o recurrent cellulitis of the left lower leg. He stated to that he had fallen about 1.5 months ago and banged his leg against a step and developed a wound. He fell again about a week ago and banged that same area on the oven door and it opened up quite a bit. Within days, the area was extremely swollen and reddened. Surrounding area was itchy, and when scratched he broke open several small areas that have been noted to be weepy. Nii was admitted for IV abx. Nii was sitting up in the bedside chair, with his legs elevated. He was open and easily conversed. Left lower leg noted to be reddened, but within the borders, large open area on lateral aspect of the leg, and many open smaller spots that have been weeping. Left leg is noted to be swollen. Nii stated that he has been having problems with his left leg for a long time, he often can not lift his left foot and stumbles over it. Nii's , Sharita, and their granddaughter, Anne Marie, were also present during the visit and were very friendly. Nii is working on reinstating his social security benefits, he is just waiting for it to go through. He and Sharita are currently living on her SS alone, and are looking forward to having some more income. They utilize [employer], fuel assistance, food malloy, and any community service we can. They deny any needs at this time. Town of Residence: [place] Resides with: Spouse (Sharita) Significant Other/Family: Local (son and his and their 4 children live next door. ) Natural Supports: family Employment Status: Disabled (mental health issues) Instrumental Activities of Daily Living (ADLs): Independent Medications Medication Management: No Issues/Barriers identified and Issues/Barriers Physical Functioning/Mobility Assistive Device: uses a cane at home. using a walker in hospital and likes the stability of it Advance Directives Advance Directives: Do you have an Advance Directive: Veronika 05/28/24 10:30 AD On File at [facility]: Veronika 06/13/24 09:12 Date Asked 02/01/25 02/02/25 08:34 AD Date Reviewed COLST On File at [facility] COLST Date Scanned Code Status Resuscitation Status Full Code Insurance Coverage/Financial Issues Insurance: Medicaid of [place]? Financial Issues: Nii lives on a tight budget, but he and his don't want. They are utilizing their community resources and state that they are making it work. Care Team Visit Care Team Role Provider Type Enid Arshad Primary Care Provider NURSE PRACTITIONER InPatient Roque Osborne Other Providers OTHER RADHA Rodríguez Emergency Provider [facility] Teofilo Beavers Admit Provider [facility] STAFF PHYSICIAN Attending Provider Discharge Potential Discharge Needs: PT Evaluation and PCP F/U Appt Anticipated Barriers to Discharge: None Identified Patient/Family Education Needs: Review discharge instructions, discuss Ask Me Three Transportation: Private vehicle Plan: Anticipate that Nii will be discharged home on oral antibiotics. He will f/u with his PCP and continue per his prescribed plan of care. Nii will transport home via private vehicle. CM will continue to follow and to update the plan as needed. Social Determinants of Health Screening Social Determinants of Health last assessed: 02/02/25 Will the Patient Participate in the Screening?: Yes Do you worry about having a steady place to live?: no Problems where you live: no known problems In the past 12 months, have you had to go without electric, gas, oil or water in your home?: no Have you or anyone in your house had to go without enough food to eat?: no Has lack of transportation kept you from medical appointments or from doing things needed for daily living?: yes Has anyone in your life made you feel unsafe or unsupported?: no How hard is it for you to pay for the very basics like food, housing, medical care, and heating? Would you say it is:: Not hard at all Do you want help finding or keeping work or a job?: I do not need or want help If for any reason you need help with day-to-day activities such as bathing, preparing meals, shopping, managing finances, etc., do you get the help you need?: I get all the help I need How often do you feel lonely or isolated from those around you?: Never Do you speak a language other than [place] at home?: No Does the patient want assistance with any of the above?: No Health Related Social Needs Health related social needs: food insecurity (Z59.41) and transportation insecurity (Z59.82) PFSH All Active Problems (Updated 02/01/25 @ 16:50 by Teofilo Beavers) Anemia, mild (Acute) DVT prophylaxis (Acute) Opioid use disorder, severe, on maintenance therapy (Acute) Methadone dependence (Acute) Cocaine abuse (Acute) Cellulitis (Acute) Medical History (Updated 02/01/25 @ 16:50 by Teofilo Beavers) Foot drop, left Bipolar disorder Lower urinary tract symptoms Hypertension Family History (Updated 02/01/25 @ 17:29 by Teofilo Beavers) Father Alcohol use disorder Substance use disorder Brother , 2 brothers of overdose Substance use disorder Social History (Updated 02/01/25 @ 17:30 by Teofilo Beavers) Smoking/Tobacco Use Status: Former Tobacco Use Tobacco: How many years used: 20 Smoking risk assessment performed?: Yes Alcohol Intake: never Drug use: Daily Substance use type: crack/cocaine Details: last use yesterday Housing: house Do you feel safe at home: Yes Do you feel safe in your relationship?: Yes Additional Social history: Lives with in [place]. Kids/granddaughters on same property Readmission Within the Past 30 Days Yes or No: No
--- NOTE | 2025-02-02 13:23 | IN_ITS ---
PT Notes Visit Reasons: Cellulitis, IVDU Physical Therapy Inpatient Initial Evaluation Date: 02/02/2025 Referring Doctor: Teofilo Beavers MD PT Orders: PT CONSULT: Precautions: Fall. Standard. Activity as tolerated. WBAT through L LE with AD.. Patient Profile/Admitting Diagnosis: Patient is a 49-year-old male with diagnoses of cellulitis, opiod use disorder, cocaine abouse, bipolar disorder, lower urinary tract infection, and anemia. PMHX: All Active Problems (Updated 02/01/25 @ 16:50 by Teofilo Beavers) Anemia, mild (Acute) DVT prophylaxis (Acute) Opioid use disorder, severe, on maintenance therapy (Acute) Methadone dependence (Acute) Cocaine abuse (Acute) Cellulitis (Acute) Medical History (Updated 02/01/25 @ 16:50 by Teofilo Beavers) Foot drop, left Bipolar disorder Lower urinary tract symptoms Hypertension Social History/Home Situation: Independent with all aspects of ADLs prior to admission using SPC. Lives with in a priavte home with 4 stps to enter with B rails. Equipment Owned/DME: SPC Subjective: Complained of throbbing pain in L leg after having walked about 40 feet x 2 using front-wheeled walker. Patient complained of generalized body itching that he said has started prior to admission. Patient has had chronic swelling in L leg and foot prior to wound occurrence. Nii added that he has fallen more than 10x in the past year due to long-standing issues with swelling and decreased sensation in his L foot. happy to have received a front-wheeled walker to take hoe as he feels more stable with it. Objective: General Observation: Wound n L proximal crural area covered with slough. Surrounding area with numerous red itchy spots, L leg erythema and swelling extent of which relatively lesser than previously marked. Some serous drainage seen oozing from one of the blisters on distal medial leg. Sporadic redness in trunk and limbs seen. Mental Status: Alert and oriented as to person, place, time, and purpose. Able to pay attention, focus, and respond appropriately. Pain: 6-7/10 worse with walking and standing Vital Signs: Closely monitored by nursing staff ROM: Right Upper Extremity: Shoulder Flexion WFL. Shoulder abduction WFL. Elbow flexion WFL. Wrist flexion WFL. Functional opening and closing of hand WFL. Left Upper Extremity: Shoulder Flexion WFL. Shoulder abduction WFL. Elbow flexion WFL. Wrist flexion WFL. Functional opening and closing of hand WFL. Right Lower Extremity: Hip flexion WFL. Hip abduction WFL. Knee flexion WFL. Ankle dorsiflexion WFL. Ankle plantarflexion WFL. Left Lower Extremity: Hip flexion WFL. Hip abduction WFL. Knee flexion WFL. Ankle dorsiflexion to neutral only. Ankle plantarflexion WFL. Strength: Right Upper Extremity: Shoulder flexors 5/5. Shoulder abductors 5/5. Elbow flexors 5/5. Elbow extensors 5/5. Motion Picture Projectionist Apprentice strong. Left Upper Extremity: Shoulder flexors 5/5. Shoulder abductors 5/5. Elbow flexors 5/5. Elbow extensors 5/5. Motion Picture Projectionist Apprentice strong. Right Lower Extremity: Hip flexors 5/5. Hip abductors 5/5. Knee flexors 5/5. Knee extensors 5/5. Ankle dorsiflexors 5/5. Ankle plantarflexors 5/5. Left Lower Extremity: Hip flexors 4/5. Hip abductors 4/5. Knee flexors 3/5. Knee extensors 3/5. Ankle dorsiflexors 3-/5. Ankle plantarflexors 4-/5. Bed Mobility/Transfers: Minimal cueing provided for use of B hands as needed for support, movement sequence, AD management, and posture to reduce fall risk and minimize pain report Sit to stand stand by assist with FWW Stand to sit stand by assist with FWW Bed to reclining chair stand by assist with FWW Reclining chair to bed stand by assist with FWW Gait: Reported throbbing pain at 6-7/10 in L leg with walking about 40 feet x 2 while holding onto front-wheeled walker for support. Liked the brand new walker given to him as its width is less than the training walker in his room that was initially used for the first trip. Unable to fully dorsiflex at the L ankle from weakness due to pain and swelling. Gait less antalgic with walker use. Balance: Static Sitting: Normal Dynamic Sitting: Normal Static Standing: Fair Dynamic Standing: Fair Special Tests: Mobility Limitations Standardized Measure [facility] AM-PAC 6 clicks Basic Mobility Inpatient Short Form: Raw Score: 22 CMS Score: 21% deficit Informed Consent/Education: Patient was instructed in purpose of PT consult and plan of care. Agreeable to proceed with established PT POC to achieve personal goals. Assessment: Decreased time in stance through the L LE due to pain impairing normal gait mechanics and limiting effective balance control. Chroninc L foot drop compunding walking issue. Ensure that patient is pre-medicated for pain in order to optimize functional performance during sessions. Patient was fitted and provided with front-wheeled walker to increase stability of gait while minimizi ng pain level. he was guided through level surface ambulation and was able to tolerate short distances with said device. He was also instructed on doing exercises to B hips and pelvis this afternoon with good response, did not do well with quads sets on the L side. Patient presents with clinical signs and symptoms consistent with current/admitting diagnoses that have resulted to mobility limitations, gait instability, generalized weakness, and overall ADL decline as demonstrated by the following impairment level findings: 1. Decreased strength to L LE major muscle groups in knee and ankle 2. Impaired sitting/standing balance 3. Impaired activity tolerance 4. Limitation of joint range of motion in L ankle 5. Pain in L leg and ft 6. Swelling in L leg and foot 7. L foot drop Impairments are contributing to the following functional limitations: 1. Decline in bed mobility skills 2. Decline in transfer skills 3. Difficulty with ambulation without assistive device and physical assistance 4. Increased completion time for mobility ADL performance 5. Increased risk for falls 6. Difficulty with managing steps alone safely Patient is assessed as a complexity based on the following: History: 49-year-old male with past medical history as indicated above Examination: Demonstrable impairment in strength, balance, and mobility level with underlying impairments and functional limitations as exhibited above as well as deficit score of 21% utilizing the [facility] Mobility Inpatient Short Form Presentation: Evolving Decision Makin moderate complexity Goals: Goals X1 week 1. Supine-Sit independent 2. Sit-Supine independent 3. Sit-Stand independent 4. Stand-Sit independent with FWW 5. Bed-Chair independent with FWW 6. Chair-Bed independent with FWW 7. Independent gait on level surface with use of FWW for at least 150 feet without report of pain nor dyspnea 8. Independent stair negotiation while holding onto B rails for at least 5 steps without report of pain nor dyspnea 9. Independent with home exercise program 10. Good static and dynamic standing balance/tolerance Plan of Care/Treatment Plan: 1-2x/day, 7 days/week x 1 week. Plan of care has been reviewed with the [facility] providing the service under Physical Therapy direction. Initiate Physical Therapy intervention for pain management as needed, strengthening, bed mobility, transfers, gait, stairs, balance training, and use of assistive device. DISCHARGE RECOMMENDATIONS: [] Home with no services [] [X] Home with services. Patient will benefit from home health PT services in order to progress mobility level using least restrictive assistive ambulatory device, assess home safety, identify additional equipment needs, and establish a functional maintenance program that will increase ability of patient to remain at home. [] Home with outpatient PT [] [] SNF for continued rehabilitation [] [] Application Chemist [facility] [] [] SNF versus LTC based on ability to participate and progress [] TREATMENT CODE/TIME: 53203 x 27 minutes for 1 unit (13:23-13:50). Thank you for the opportunity to participate in the care of this patient. Iris Howard PT, DPT, CLT [facility] [place], [place]
[2025-02-02 15:35] VITALS: BP 102/52; PULSE 58; RESP 18; TEMP 37; O2SAT 96
[2025-02-02] MEDS: Methadone Liquid 10 MG/ML 120 MG PO (20:07)
[2025-02-02] MEDS: Enoxaparin 40 MG/0.4 ML SYR SC (20:07)
[2025-02-02 20:13] VITALS: BP 142/65; PULSE 70; RESP 19; TEMP 37.2; O2SAT 96
[2025-02-03] MEDS: VANCOMYCIN/WATER (PEG) 1.5 GM/300 ML BAG IVPB (00:23)
[2025-02-03 07:12] LABS: Abs Immature Grans 0.04 10^3/uL (0.0-0.06); Absolute Basophil Count 0.04 10^3/uL (0.0-0.2); Absolute Eosinophil Count 0.27 10^3/uL (0.0-0.7); Absolute Lymphocyte Count 1.94 10^3/uL (1.2-3.4); Absolute Monocyte Count 0.41 10^3/uL (0.1-0.8); Absolute Neutrophil Count 3.77 10^3/uL (1.2-6.7); Basophils % 0.6 %; Eosinophils % 4.2 %; HCT 43.6 % (40.0-50.0); HGB 13.2 g/dL (13.5-17.5); Immature Grans % 0.6 %; MCH 26.8 pg (27.0-33.0); MCHC 30.3 % (32.0-36.0); MCV 88 fL (80-95); MPV 9.2 fL (8.0-11.0); Monocytes % 6.3 %; Neutrophils % 58.3 %; Platelet Count 206 10^3/uL (130-400); RBC 4.93 10^6/uL (4.36-5.78); RDW 15.2 % (11.8-14.1); RDW-SD 49.1 fL; WBC 6.47 10^3/uL (4.4-10.8)
[2025-02-03 07:29] LABS: Vancomycin, Random 17.8 ug/mL
[2025-02-03 07:50] VITALS: BP 94/64; PULSE 61; RESP 18; TEMP 36.7; O2SAT 97
[2025-02-03] MEDS: lamoTRIgine 25 MG TAB PO (08:13)
[2025-02-03] MEDS: Methadone Liquid 10 MG/ML 125 MG PO (08:13)
[2025-02-03] MEDS: Propranolol 10 MG TAB PO (08:14)
[2025-02-03] MEDS: diphenhydrAMINE 25 MG CAP PO ×2 (08:14→11:45)
[2025-02-03] MEDS: Lithium Carbonate 150 MG CAP 300 MG PO (08:14)
[2025-02-03] MEDS: lamoTRIgine 100 MG TAB PO (08:14)
[2025-02-03] MEDS: amLODIPine 10 MG TAB PO (08:14)
[2025-02-03] MEDS: Pantoprazole 40 MG TABCR PO (08:14)
[2025-02-03] MEDS: Tamsulosin 0.4 MG CAPCR PO (08:14)
[2025-02-03] MEDS: Gabapentin 300 MG CAP PO (08:14)
[2025-02-03] MEDS: diphenhydrAMINE /ZINC ACET CR 30 GM TUBE TP (08:15)
[2025-02-03 08:20] VITALS: BP 116/68
--- NOTE | 2025-02-03 12:07 | PT.INTREAT ---
PT Notes Visit Reasons: Cellulitis, IVDU Inpatient Physical Therapy Treatment Note [facility] Date: 02/03/2025 PRECAUTIONS:IV Access, Standard, SUBJECTIVE: Pt reports he is going home so he does not want to do any therapy. but upon reapproach he agreed to review HEP and ambulate with FWW OBJECTIVE: Sitting in chair with IV infusing ? PAIN: 3/10 left leg ? Therapeutic Exercises ([id number][]): Direct one-on-one instruction in therapeutic exercises to develop strength, endurance, range of motion and flexibility. pt performed 5 reps of the following HEP written instructions provided ? Exercises ? supine QS, GS, AP, heel slides, SAQ seated: LAQ, marching, hip abd/add, hamstring stretch, sit to stand ( reviewd only)stand (with left leg only) hip abd, marching, extension: B heel raises and mini squats Ambulation ? Assistive Device: FWW ? Weight bearing: allowed full pt performs WBAT Assist: supervision? Distance:? 20 feet x 2 in room? Deviation: slight antalgic left , increased WB through BUE to unweight LLE, decreased step length and ?toes first on weight acceptance ? Provided skilled instruction in proper exercise performance ASSESSMENT:? Pt able to tolerate increase AROM LLE today vs initial assessment. Pt tolerating increased WB as well. Pt encouraged to place heel down first for weight acceptance on LLE to reduce risk for contracture at ankle and knee. HEP handout issued and reviewed. Pt has FWW which was issued and fitted at initial evaluation. PLAN:cont per POC until discharge TREATMENT CODE/TIME: 48155/ [id number], [id number] DISCHARGE RECOMMENDATION: HHPT
--- NOTE | 2025-02-03 12:29 | DSE_ITS ---
Date of service: 02/03/25 Time of Service: 12:29 DS: Diagnosis Discharge Diagnosis (1) Cellulitis: Status: Acute (2) Opioid use disorder, severe, on maintenance therapy: Status: Acute (3) Hypertension: (4) Bipolar disorder: (5) Lower urinary tract symptoms: (6) Anemia, mild: Status: Acute (7) DVT prophylaxis: Status: Acute Discharge Plan Disposition Patient Disposition: Home W/Home Health Services Condition: Improving Discharge Details Reason For Visit: Cellulitis, IVDU Admit Date/Time: 02/01/25 15:13 Admit Provider: Teofilo Beavers Attending Provider: Teofilo Beavers Primary Care Provider: Enid Arshad Hospital Course Hospital Course: 49 yo M with history of regular IV stimulant use, opioid use disorder on methadone, and hypertension presents with 6 weeks of a wound on his left murry that had greatly worsened in the past week. Circumferential lower leg cellulitis and pustules noted. he was not septic. He was admitted and started on vancomycin. His redness and swelling in the left leg improved. Culture of a pustule grew Group A strep. Vancomycin was stopped and oxacillin started. After about 48 hours his blood cultures remained negative. He was discharge on amoxicillin for 5 more days. He is using cocaine, usually smoking, most days. He had injected adderall last 2 days prior to admission. He appeared stable in terms of his opioid use disorder on high dose methadone. In addition to his cellulitis, he had a diffuse itchy rash. Topical itch cream and mild steroid cream was used. On review of his fill history and talking to him, it seems he may have ran out of lamotrigine and then resumed it. Given the risk of severe rash, we recommended he stop this. Of note his lithium level was <0.2 on admission. He thought he was taking this, but fill records show irregular use. He does not drive so would benefit from a mail order or delivery pharmacy, possibly [facility] could deliver with bubble packing. [place] was resumed and he should repeat the level in 3 days. He did have some degree of left foot drop on admission, which he states is chronic. This seems to be a factor in the initial injury on stairs. He may benefit from an evaluation with EMG and/or MRI of his LS spine and and AFO. He was evaluated by PT and home health PT recommended due to mobility limitations. Wound care was also ordered. He was mildly anemic and has never had a colonoscopy. He does have hard stools that are often bloody, though he had looser stool the day of admission. This was discussed Follow up: [place] level/bipolar stability Pharmacy that will deliver medications Wound care anemia work up/colonoscopy referral Home Meds and New Rx's Prescriptions: New Banophen Anti-Itch 2-0.1 % Cream 1 applic topical QID PRN PRNQty: 0 0RF amoxicillin 875 mg tablet 875 mg PO BID Qty: 10 0RF Continued clonidine HCl 0.1 mg tablet 0.1 mg PO BID PRN (Reason: anxiety) Patient Comments: TAKE 1 TABLET BY MOUTH TWICE DAILY NEEDED FOR ANXIETY omeprazole 40 mg capsule,delayed release(DR/EC) 40 mg PO DAILY Patient Comments: TAKE 1 CAPSULE BY MOUTH EVERY DAY propranolol 10 mg tablet 10 mg PO TID Patient Comments: TAKE 1 TABLET BY MOUTH THREE TIMES DAILY tamsulosin 0.4 mg capsule 0.4 mg PO DAILY Patient Comments: TAKE 1 CAPSULE BY MOUTH DAILY amlodipine 10 mg tablet 10 mg PO DAILY Patient Comments: TAKE 1 TABLET BY MOUTH EVERY DAY gabapentin 300 mg capsule 300 mg PO TID Patient Comments: TAKE 1 CAPSULE BY MOUTH THREE TIMES DAILY hydroxyzine HCl 25 mg tablet 25 mg PO BID Patient Comments: TAKE 1 TABLET BY MOUTH TWICE DAILY NEEDED FOR ANXIETY AND 2 TABLETS AT BEDTIME TO AID SLEEP lithium carbonate 300 mg tablet 300 mg PO BID Patient Comments: TAKE 1 TABLET BY MOUTH TWICE DAILY methadone 10 mg/5 mL solution See Rx Instructions PO BID Qty: 120 0RF Rx Instructions: orally twice a day; 125 mg qam + 120 mg qpm (verified w/[facility] 02/02/25) Discontinued lamotrigine 25 mg tablet 25 mg PO DAILY lamotrigine 100 mg tablet 100 mg PO DAILY Patient Comments: TAKE 1 TABLET BY MOUTH DAILY Discharge Instructions Instructions: Cellulitis (skin infection) in adults - Discharge instructions Additional Instructions: Continue wound care as we discussed. Keep open wound covered, use clean ointment such as petroleum jelly, mild compression. Keep the leg raised when you can Finish five more days of antibiotics Stop the lamotrigine for now. This may be causing your general rash from stopping and starting it. Your PCP may have you resume this at 25mg and slowly go back up. You did not have lithium in your system. Make sure you have this medication and you are taking it. You should get blood tests in 3 days check levels You should get a colonoscopy to screen for colon cancer. You can take over the counter Miralax/polyethylene glycol daily to help constipation Activity:: Activity as Tolerated Equipment/Supplies:: No Equipment Needed Diet:: As Tolerated Discharge Orders Discharge Orders: Discharge Order (Routine); Ordered 02/03/25 Ordered By: Teofilo Beavers Other Ambulatory Orders: [place] (Routine) Timeframe: 3 Days Facility: [facility] - Location: Laboratory Outpatient - [facility] Ordered By: Teofilo Beavers DS: Summary Time Spent with Patient providing and/or coordinating discharge services: Greater than 30 minutes Status at Discharge Functional status at discharge: independent ambulation Overall status at discharge: patient is progressing back to baseline Mental Status: mental status grossly normal Speech and Movement: speech and movement normal Mood: anxious mood Affect: anxious affect Quality:SDOH Health Related Social Needs: Health related social needs food insecurity (Z59.41), transportation insecurity (Z59.82) Exam Narrative Exam Narrative: GEN: Alert and oriented, No acute distress at rest, sitting up in chair HEENT: conj clear, no MM lesions LUNGS: CTAB with normal effort CV: RRR with no murmurs, gallops, or rubs. 2+ PD pulses ABD: active bowel sounds, soft, nontender and nondistended. No masses. EXT: no cyanosis, clubbing, or edema x focally on left SKIN: Well demarkated patch with ~8cm dry scab on superior murry, skin clearing with redness mostly just around wound and papules today, scattered papules (no longer pus) and smaller excoriated papules with scabs, superior murry to ankle circumferentially. On upper arms and back also scattered papules and excoriations, dry without pus or redness. PSYCH: mildy anxious mood and affect, normal thought process. Psych Mental Status: mental status grossly normal Speech and Movement: speech and movement normal Mood: anxious mood Affect: anxious affect DS: Data Vitals/I&O Vitals and I&O: Vital Signs Temperature 36.7 C 02/03/25 07:50 Temperature Source Temporal Artery Scan 02/03/25 07:50 Pulse 61 02/03/25 07:50 Pulse Rhythm Regular 02/01/25 16:30 Pulse 61 02/01/25 15:40 Respiratory Rate 18 02/03/25 07:50 Respiratory Effort Normal, Non-Labored 02/01/25 16:30 Respiratory Depth Normal 02/01/25 16:30 Respiratory Pattern Normal 02/01/25 16:30 Blood Pressure 116/68 02/03/25 08:20 Blood Pressure Mean 86 02/01/25 15:31 Blood Pressure Position Sitting 02/01/25 12:16 Pulse Oximetry 97 02/03/25 07:50 Oxygen Delivery Method Room Air 02/03/25 07:50 Oxygen Flow Rate 0 02/03/25 07:50 Pain Level 5 02/03/25 08:13 Comment rn notified 02/03/25 07:50 Intake & Output 02/02/25 02/03/25 02/03/25 23:59 11:59 23:59 Intake Total 570 / 830 475 / 475 Balance 570 / 830 475 / 475 Intake: IV 470 / 730 475 / 475 Oral 100 / 100 Other: Urine Color Yellow Urine Appearance Clear Urine Odor Normal Comment pt states he has been voiding independently. No issues reported pt states they voided independently, no issues reported Stool Size Small Stool Characteristics Formed Hard Brown Data Completed and Pending Labs on day of discharge: Labs from last 24 hours 02/03/25 06:20 WBC 6.47 RBC 4.93 Hgb 13.2 L Hct 43.6 MCV 88 MCH 26.8 L MCHC 30.3 L RDW 15.2 H Plt Count 206 MPV 9.2 Immature Gran % 0.6 Neutrophils % 58.3 Lymphocytes % 30.0 Monocytes % 6.3 Eosinophils % 4.2 Basophils % 0.6 Nucleated RBC % 0.0 Absolute Neutrophils 3.77 Absolute Lymphocytes 1.94 Absolute Monocytes 0.41 Absolute Eosinophils 0.27 Absolute Basophils 0.04 Random Vancomycin 17.8 Preliminary micro results at discharge 02/01/25 12:50 Blood Culture - Preliminary Blood NO GROWTH 24 HOURS 02/01/25 12:50 Blood Culture - Preliminary Blood NO GROWTH 24 HOURS 02/01/25 12:30 Wound Culture - Preliminary Leg - Left Lower Strep pyogenes (Group A) PFSH All Active Problems (Updated 02/01/25 @ 16:50 by Teofilo Beavers) Anemia, mild (Acute) DVT prophylaxis (Acute) Opioid use disorder, severe, on maintenance therapy (Acute) Methadone dependence (Acute) Cocaine abuse (Acute) Cellulitis (Acute) Medical History (Updated 02/01/25 @ 16:50 by Teofilo Beavers) Foot drop, left Bipolar disorder Lower urinary tract symptoms Hypertension Family History (Updated 02/01/25 @ 17:29 by Teofilo Beavers) Father Alcohol use disorder Substance use disorder Brother , 2 brothers of overdose Substance use disorder Social History (Updated 02/01/25 @ 17:30 by Teofilo Beavers) Smoking/Tobacco Use Status: Former Tobacco Use Tobacco: How many years used: 20 Smoking risk assessment performed?: Yes Alcohol Intake: never Drug use: Daily Substance use type: crack/cocaine Details: last use yesterday Housing: house Do you feel safe at home: Yes Do you feel safe in your relationship?: Yes Additional Social history: Lives with in [place]. Kids/granddaughters on same property Time Spent with Patient Time Spent with Patient: 45-69 minutes Time was spent: preparing to see the patient(eg.review tests), obtaining and/or reviewing separately otained hiistory, ordering medications,tests, procedures, referring, communicating with other health personal care worker, indepentently interpreting results, counseling the patient and care coordination
--- NOTE | 2025-02-03 12:33 | PDOC.HHF2F ---
Home Health Referral Home Health Orders Clinical synopsis of why skilled professionals are needed: 49 yo M with history of regular IV stimulant use, opioid use disorder on methadone, and hypertension presents with 6 weeks of a wound on his left murry that had greatly worsened in the past week. Circumferential lower leg cellulitis and pustules noted. he was not septic. He was admitted and started on vancomycin. His redness and swelling in the left leg improved. Culture of a pustule grew Group A strep. Vancomycin was stopped and oxacillin started. After about 48 hours his blood cultures remained negative. He was discharge on amoxicillin for 5 more days. He is using cocaine, usually smoking, most days. He had injected adderall last 2 days prior to admission. He appeared stable in terms of his opioid use disorder on high dose methadone. In addition to his cellulitis, he had a diffuse itchy rash. Topical itch cream and mild steroid cream was used. On review of his fill history and talking to him, it seems he may have ran out of lamotrigine and then resumed it. Given the risk of severe rash, we recommended he stop this. Of note his lithium level was <0.2 on admission. He thought he was taking this, but fill records show irregular use. He does not drive so would benefit from a mail order or delivery pharmacy, possibly [employer] could deliver with bubble packing. [place] was resumed and he should repeat the level in 3 days. He did have some degree of left foot drop on admission, which he states is chronic. This seems to be a factor in the initial injury on stairs. He may benefit from an evaluation with EMG and/or MRI of his LS spine and and AFO. He was evaluated by PT and home health PT recommended due to mobility limitations. Wound care was also ordered. He was mildly anemic and has never had a colonoscopy. He does have hard stools that are often bloody, though he had looser stool the day of admission. This was discussed Follow up: [place] level/bipolar stability Pharmacy that will deliver medications Wound care anemia work up/colonoscopy referra Medical diagnosis necessitation home health referral: leg wound, cellulitis, left foot drop, weakness Registered Nurse: Check all that apply Instruct on new or changed medication(s)/assess compliance: Ordered Assess for exacerbation of medical condition, instruct patient/caregivers on signs and symptoms to report for early detection: Ordered (bipolar disorder, cellulitis) Assess wound for signs and symptoms of infection, instruct on wound care and/or provide skilled wound care consisting of: left leg wound Physical Therapist: Check all that apply Increase strength & endurance for safe mobility at home: Ordered To design/establish home maintenance program: Ordered Fall reduction therapy program for patient with history of frequent falls: Ordered Home safety evaluation and teaching/gait training including stair management (if applicable): Ordered Power Shovel Operator Helper: Assist with community resources: Ordered Other: no vehicle, needs help with regular med adherence Home Bound Status Requires the aid of supportive device (check all that apply): Walker Describe why leaving home would require a considerable and taxing effort: Requires frequent rest periods Encounter Date and Reason: I certify that a FTF encounter for this patient was performed on February 03, 2025 and that such encounter was related to the primary reason the patient requires home health services. The encounter was conducted in the following manner: By me as the certifying physician, DIRECTOR OF GLOBAL SALES, PA or By an inpatient physician, DIRECTOR OF GLOBAL SALES or PA during an inpatient stay who communicated findings to me, Certification And Authentication I certify that I composed the above information based on my clinical judgment relating to this patient's medical condition and, if applicable, clinical findings communicated to me by the NPP or inpatient physician who performed the FTF encounter. Name of Provider that will be monitoring home health services: Enid Arshad
--- NOTE | 2025-02-03 15:33 | CHAPLAIN ---
I had a brief visit with Nii before he was discharged today. He was looking forward to getting home.
--- NOTE | 2025-02-03 16:26 | CMDISCH_ITS ---
Date of service: 02/03/25 Time of Service: 16:26 LACE Index Scoring Tool Questions: Length of Stay (in days): 2 Was the patient admitted via the E.D.?: Yes Care Management Discharge Plan Reason for Hospitalization: cellulitis Discharge Plan: Nii was discharged home earlier today with new services of [facility] RN, PT and [employer]. He will f/u with his PCP and continue per his plan of care. Nii was transported home in a private vehicle. Patient/Family Education Needs: Review of discharge instructions, activity, limitations and discuss Ask me 3. Services Needed at Discharge: Home Health Care Services ([facility] new RN, PT and [employer]) SDOH Health Related Social Needs: Health related social needs food insecurity (Z59.41), transportation insecurity (Z59.82)
== END 2025-02-03 12:38 | disposition home health service (06) | DRG 603 ==
LOC: ER 14:13 → MS 15:55
PROVIDERS: Admitting Provider Family Medicine; Emergency Provider Physician Assistant; PCP Nurse Practitioner Family; Responsible Provider Family Medicine; Visit Provider Family Medicine
DX: L03.116 Cellulitis of left lower limb (principal); F11.20 Opioid dependence, uncomplicated; F14.10 Cocaine abuse, uncomplicated; D64.9 Anemia, unspecified; F15.90 Other stimulant use, unspecified, uncomplicated; R39.9 Unspecified symptoms and signs involving the genitourinary system; K59.03 Drug induced constipation; B95.0 Streptococcus, group A, as the cause of diseases classified elsewhere; I10 Essential (primary) hypertension; F31.9 Bipolar disorder, unspecified; M21.372 Foot drop, left foot; Z79.899 Other long term (current) drug therapy; R21 Rash and other nonspecific skin eruption
CPT/HCPCS: 00123; 36415; 80048; 80053; 85652; 87040; 87077; 96365; 96366; 97110; 97162; 99285; J1650; 73590; 80178; 80202; 83605; 85025; 86140; 87070; 87205; 99222; 99232; 99239; J2700; J3370; J3372

== ENCOUNTER 2025-03-05 00:34 | Outpatient (CLI) | payer MEDICAID, SELFPAY ==
--- NOTE | 2025-03-05 | DI.MRI_ITS ---
Exam(s) MR LUMBAR SPINE WO EXAM: MR LUMBAR SPINE WO CLINICAL HISTORY: M21.371 Foot drop, RT foot. TECHNIQUE: Multiplanar multisequence MRI of the Lumbar spine was performed. COMPARISON: CR XR LUMBAR SPINE AP, LAT from 01/08/2025 FINDINGS: Conus medullaris is at normal level. There is no evidence of conus mass nor subjacent clumping of in trathecal nerve roots to suggest arachnoiditis. The distal thecal sac appears unremarkable.There is no evidence of Tarlov intrasacral cysts nor other significant findings within the sacral canal Bones:There are no fractures nor ominous osseous lesions in the lumbar vertebral bodies and visualize d sacrum. Schmorl's node invagination in the superior endplate of T12 is noted. There is no abnorma l marrow signal at this level to suggest that this is an acute event. With respect to the individual levels... T12-L1: Unremarkable L1-2: Normal disc height and signal. No disc herniation nor central canal stenosis.No foraminal steno sis L2-3: Normal disc height. No disc herniation nor central canal stenosis.No foraminal stenosis.No face t arthropathy. L3-4: Normal disc height. No evidence of disc herniation. Central canal dimensions are lower normal . No foraminal stenosis. No facet arthropathy. L4-5: Normal disc height and signal. No disc herniation. Central canal dimensions are lower normal. No facet arthropathy. No significant foraminal stenosis. L5-S1: Normal disc height. Posteriorly there is mild central subligamentous disc bulge which does no t flatten the thecal sac. Central canal dimensions are lower normal. No facet arthropathy. No sign ificant foraminal stenosis evident. Soft tissues: paraspinal soft tissues appear unremarkable. IMPRESSION: 1. Minimal findings as described above. 2. No evidence of prominent disc herniation nor significant canal stenosis. 3. No significant foraminal stenosis. DATA REPOSITORY:
== END 2025-03-05 00:54 ==
LOC: DI 00:34
PROVIDERS: PCP Nurse Practitioner Family; Visit Provider Nurse Practitioner Family
DX: M21.371 Foot drop, right foot (principal)
CPT/HCPCS: 72148

== ENCOUNTER 2025-03-10 08:04 | Outpatient (CLI) | payer MEDICAID, SELFPAY ==
--- NOTE | 2025-03-10 08:00 | RT.EKG_ITS ---
APPROVED REPORT Exam: Resting ECG Reason for Exam: high risk medication use Patient Location: O HR:60 bpm ECG Measurements Heart Rate 60 AXIS PA 162 P 23 QRSd 95 QRS 53 QT 574 T 59 QTc 574 Conclusion Sinus rhythm...normal P axis, V-rate 50- 99 ST elev, probable normal early repol pattern...ST elevation, age<55 Prolonged QT interval...QTc >500mS
== END 2025-03-10 08:05 | disposition home or self-care (01) ==
PROVIDERS: PCP Nurse Practitioner Family; Visit Provider Family Medicine
DX: Z79.899 Other long term (current) drug therapy (principal)
CPT/HCPCS: 93005; 93010

== ENCOUNTER 2025-07-08 09:58 | Outpatient (CLI) | payer MEDICAID, SELFPAY ==
--- NOTE | 2025-07-08 09:45 | RT.EKG_ITS ---
APPROVED REPORT Exam: Resting ECG Reason for Exam: High Risk Medication Use Patient Location: O HR:51 bpm ECG Measurements Heart Rate 51 AXIS TN 160 P 57 QRSd 87 QRS 52 QT 472 T 60 QTc 435 Conclusion Sinus rhythm...normal P axis, V-rate 50- 99 ST elev, probable normal early repol pattern...ST elevation, age<55
== END 2025-07-08 09:59 | disposition home or self-care (01) ==
LOC: CARDOPNVT 09:58
PROVIDERS: PCP Nurse Practitioner Family; Visit Provider Family Medicine
DX: Z79.899 Other long term (current) drug therapy (principal)
CPT/HCPCS: 93005; 93010